=== PATIENT | male | born 2000 | race Caucasian/White ===

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

== ENCOUNTER 2018-09-04 15:00 | Emergency (ER) | END 2018-09-04 21:32 | disposition home or self-care (01) ==

== ENCOUNTER 2019-01-18 10:38 | Emergency (ER) | payer OTHER ==
[~2019-01-18] VITALS: Ht 175.3 cm; Wt 94.6 kg
[~2019-01-18 10:38] MED LIST changes: -ALBU8.5H3 INH; +ALBU8.5H8 INH; +IBUP-1542 PO
[2019-01-18 10:39] VITALS: Ht 175.3 cm; Wt 94.6 kg
[2019-01-18] MEDS ORDERED: LORAZEPAM 0.5 MG TAB PO ONE (11:00)
--- NOTE | 2019-01-18 13:14 | ERD ---
ER Documentation Chief Complaint Chief Complaint " I HAVE THOUGHTS OF HURTING MYSELF, I NEED HELP" HPI 18-year-old man presenting with increasing auditory hallucinations and having thoughts of killing himself. He states the voices telling him to killing himself for the last few weeks and they are getting "louder". Patient denies history of psychiatric illness, psychiatric holds, or psychiatric medications. He states he has been self-medicating himself with marijuana. Patient denies chest pain or shortness of breath, no headache or blurry vision, no fevers or chills, no recent trauma. ROS All systems reviewed and are negative except as per history of present illness. Medications Home Meds Discontinued Reported Medications [None] No Conflict Check 11/11/10 Discontinued Scripts Ibuprofen* (Ibuprofen*) 600 Mg Tablet, 600 MG PO Q8 for pericarditis, #30 TAB Prov:ORIN LOMAX DO 09/04/18 Albuterol Sulfate* (Proair HFA*) 8.5 Gm Hfa.aer.ad, 2 PUFF INH Q4, #1 INHALER Prov:MARTY STEVENSON PA-C 10/05/17 Allergies Allergies: Coded Allergies: No Known Drug Allergies (Verified Allergy, Mild, 01/18/19) PMhx/Soc None History of Surgery: No Anesthesia Reaction: No Hx Neurological Disorder: No Hx Respiratory Disorders: No Hx Cardiac Disorders: No Hx Psychiatric Problems: No Hx Miscellaneous Medical Probl: No Hx Alcohol Use: No Hx Substance Use: Yes (marijuana) Hx Tobacco Use: No Smoking Status: Never smoker FmHx Family History: No diabetes Physical Exam Vitals Vital Signs Date Temp Pulse Resp B/P (MAP) Pulse Ox O2 O2 Flow FiO2 Time Delivery Rate 01/18/19 98.0 73 19 149/93 98 10:39 (111) Physical Exam GENERAL: Well-developed, well-nourished, well-hydrated, anxious, agitated HEENT: Moist mucous membranes, pink conjunctiva, no cervical spine tenderness or step-off deformities, no goiter, no jaundice or icterus, extraocular movements intact without pain. No submandibular induration, and no pharyngeal erythema NEURO: Alert and oriented 3, cranial nerves II through XII intact bilaterally, pupils equal round reactive to light, no focal deficits or facial asymmetry, sensation intact distally Strength 5/5 in upper and lower extremities bilaterally CARDIAC: Regular rate and rhythm, no murmurs rubs or gallops LUNGS: Clear bilaterally no wheezing crackles or stridor PSYCH: Anxious, agitated Result Diagram: 01/18/19 1113 01/18/19 1113 Results 24 hrs Laboratory Tests Test 01/18/19 11:13 01/18/19 12:17 White Blood Count 11.4 10^3/ul Red Blood Count 5.17 10^6/ul Hemoglobin 16.2 g/dl Hematocrit 48.5 % Mean Corpuscular Volume 93.8 fl Mean Corpuscular Hemoglobin 31.3 pg Mean Corpuscular Hemoglobin Concent 33.4 g/dl Red Cell Distribution Width 12.2 % Platelet Count 309 10^3/UL Mean Platelet Volume 8.9 fl Immature Granulocytes % 0.400 % Neutrophils % 74.6 % Lymphocytes % 18.6 % Monocytes % 5.7 % Eosinophils % 0.3 % Basophils % 0.4 % Nucleated Red Blood Cells % 0.0 /100WBC Immature Granulocytes # 0.050 10^3/ul Neutrophils # 8.5 10^3/ul Lymphocytes # 2.1 10^3/ul Monocytes # 0.7 10^3/ul Eosinophils # 0.0 10^3/ul Basophils # 0.1 10^3/ul Nucleated Red Blood Cells # 0.0 10^3/ul Sodium Level 142 mmol/L Potassium Level 3.9 mmol/L Chloride Level 104 mmol/L Carbon Dioxide Level 24 mmol/L Anion Gap 14 Blood Urea Nitrogen 12 mg/dl Creatinine 0.65 mg/dl Est Glomerular Filtrat Rate mL/min > 60 mL/min Glucose Level 124 mg/dl Calcium Level 10.3 mg/dl Total Bilirubin 0.5 mg/dl Direct Bilirubin 0.00 mg/dl Indirect Bilirubin 0.5 mg/dl Aspartate Amino Transf (AST/SGOT) 41 IU/L Alanine Aminotransferase (ALT/SGPT) 98 IU/L Alkaline Phosphatase 71 IU/L Total Protein 8.4 g/dl Albumin 5.2 g/dl Globulin 3.20 g/dl Albumin/Globulin Ratio 1.62 Salicylates Level < 1.0 mg/dl Acetaminophen Level < 10.0 ug/ml Ethyl Alcohol Level < 10.0 mg/dl Urine Color YELLOW Urine Clarity CLEAR Urine pH 5.0 Urine Specific [place] 1.026 Urine Ketones NEGATIVE mg/dL Urine Nitrite NEGATIVE mg/dL Urine Bilirubin NEGATIVE mg/dL Urine Urobilinogen NEGATIVE mg/dL Urine Leukocyte Esterase NEGATIVE [place]/ul Urine Hemoglobin NEGATIVE mg/dL Urine Glucose NEGATIVE mg/dL Urine Total Protein NEGATIVE mg/dl Urine Opiates Screen Negative Urine Barbiturates Negative Urine Amphetamines Screen Negative Urine Benzodiazepines Screen Negative Urine Cocaine Screen Positive Urine Cannabinoids Positive Current Medications Medications Dose Sig/Amna Start Time Status Last (Trade) Ordered Route PRN Stop Time Admin Dose Reason Admin Lorazepam 0.5 mg ONCE ONCE 01/18/19 DC 01/18/19 (Ativan) PO 11:00 11:18 01/18/19 11:01 Procedures/MDM CBC and electrolytes are normal, liver function tests were normal, aspirin Tylenol's, ethanol levels negative. Drug screen was positive for cocaine and marijuana. I administered lorazepam 0.5 mg p.o. x1 for his symptoms. Tele-psychiatry and PET evaluations have been ordered. Patient will require psychiatric hold and transfer to [facility] facility. Patient's behavioral symptoms have stabilized while in the department. Patient is medically cleared and appropriate for psychiatric evaluation and work up. No e/o neurologic, toxic, infectious, or metabolic cause. Departure Diagnosis: Primary Impression: Suicidal ideation Additional Impression: Cocaine abuse Condition: Stable LUCY FRANCO MD Jan 18, 2019 13:14
--- NOTE | 2019-01-18 15:32 | PSY ---
Date/Time of Note Date/Time of Note DATE: 01/18/19 TIME: 15:26 Psychiatric Subjective Eval Consent Pt consented to telemedicine: Yes Subjective Evaluation Patient location: emergency Chief Complaint: " I HAVE THOUGHTS OF HURTING MYSELF, I NEED HELP" History of present illness 18 yo single unemployed male presents to ED c/o depressed mood, suicidal thou ghts w/o a plan and command hallucinations. Pt denies plan or intent but says the thoughts are there all the time and he doesn't know what he can do; he admits to feeling hopeless and helpless, not safe. However, then suggested inpt psych treatment he changes his story and says he feels safe and he is here "just to talk to someone". He is not on any meds. He reluctantly admits to using cocaine. "2x month" ; he says he has been feeling suicidal for a few months. He denies VH, HI. His GF Jamilah Macdonald is with him in the room. 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 Psychiatric Objective Eval Review of Systems: Review of Systems: Not Applicable Physical Examination: Physical Examination: Not Applicable Appetite: Decreased Energy: Decreased Interest: Decreased Mental Status Examination: Appearance: Groomed Eye Contact: Good Psychomotor Activity: Agitated Behavior: Guarded Speech: Clear AFFECT: Depressed, Anxious Mood: Depressed Though Process: Linear Thought Content: Hallucinations Suicidal: Yes Homicidal: No On 72 hour hold: No Orientation: x4 Cognition: Alert Insight: Impared Judgement: Impared Laboratory Results Laboratory Tests Test 01/18/19 11:13 01/18/19 12:17 White Blood Count 11.4 10^3/ul Red Blood Count 5.17 10^6/ul Hemoglobin 16.2 g/dl Hematocrit 48.5 % Mean Corpuscular Volume 93.8 fl Mean Corpuscular Hemoglobin 31.3 pg Mean Corpuscular Hemoglobin Concent 33.4 g/dl Red Cell Distribution Width 12.2 % Platelet Count 309 10^3/UL Mean Platelet Volume 8.9 fl Immature Granulocytes % 0.400 % Neutrophils % 74.6 % Lymphocytes % 18.6 % Monocytes % 5.7 % Eosinophils % 0.3 % Basophils % 0.4 % Nucleated Red Blood Cells % 0.0 /100WBC Immature Granulocytes # 0.050 10^3/ul Neutrophils # 8.5 10^3/ul Lymphocytes # 2.1 10^3/ul Monocytes # 0.7 10^3/ul Eosinophils # 0.0 10^3/ul Basophils # 0.1 10^3/ul Nucleated Red Blood Cells # 0.0 10^3/ul Sodium Level 142 mmol/L Potassium Level 3.9 mmol/L Chloride Level 104 mmol/L Carbon Dioxide Level 24 mmol/L Anion Gap 14 Blood Urea Nitrogen 12 mg/dl Creatinine 0.65 mg/dl Est Glomerular Filtrat Rate mL/min > 60 mL/min Glucose Level 124 mg/dl Calcium Level 10.3 mg/dl Total Bilirubin 0.5 mg/dl Direct Bilirubin 0.00 mg/dl Indirect Bilirubin 0.5 mg/dl Aspartate Amino Transf (AST/SGOT) 41 IU/L Alanine Aminotransferase (ALT/SGPT) 98 IU/L Alkaline Phosphatase 71 IU/L Total Protein 8.4 g/dl Albumin 5.2 g/dl Globulin 3.20 g/dl Albumin/Globulin Ratio 1.62 Salicylates Level < 1.0 mg/dl Acetaminophen Level < 10.0 ug/ml Ethyl Alcohol Level < 10.0 mg/dl Urine Color YELLOW Urine Clarity CLEAR Urine pH 5.0 Urine Specific [place] 1.026 Urine Ketones NEGATIVE mg/dL Urine Nitrite NEGATIVE mg/dL Urine Bilirubin NEGATIVE mg/dL Urine Urobilinogen NEGATIVE mg/dL Urine Leukocyte Esterase NEGATIVE [facility]/ul Urine Hemoglobin NEGATIVE mg/dL Urine Glucose NEGATIVE mg/dL Urine Total Protein NEGATIVE mg/dl Urine Opiates Screen Negative Urine Barbiturates Negative Urine Amphetamines Screen Negative Urine Benzodiazepines Screen Negative Urine Cocaine Screen Positive Urine Cannabinoids Positive Assessment and Plan Assessment/Diagnosis Diagnosis Major depressive disorder recurrent severe with psychosis. Cocaine use disorder Recommendation/Plan Medication Management Zyprexa 5 mg Po qhs; for agitation: Zyrpexa 10 mg + ativan 2 mg + Benadryl 50 mg po oor im prn q 12 hrs Multiple antipsychotics: Yes Discharge Disposition: Psychiatric inpatient Legal Status: Place involuntary hold KIMBER SANTOS MD Jan 18, 2019 15:32
[2019-01-18] MEDS ORDERED: OLANZAPINE (ODT) 5 MG TAB ODT SCH (21:00)
[2019-01-19 06:25] VITALS: BP 121/79; PULSE 82; RESP 20
--- NOTE | 2019-01-19 06:41 | EN ---
Date/Time of Note Date/Time of Note DATE: 01/19/19 TIME: 06:40 ER Progress Note Psychiatric Observation Note: Indication: Suicidal ideation Duration: Greater than 20 hours Family history: As documented in original HPI The patient was observed with serial exams over the above timeframe. The patient continued to be well-appearing, and observation continued without complication. All other needs have been met during emergency department stay. Routine psychiatric medications ordered: Yes, see EMR Zyprexa 5 nightly Hold status: Currently on 5150 hold Placement status: Patient seems to be accepted at [facility] and transportation at 1030 this morning. Pending transportation at this time. GISEL QUIROZ MD Jan 19, 2019 06:41
== END 2019-01-19 11:25 ==
LOC: E/R 10:38
DX: R45.851 Suicidal ideations (principal); F14.10 Cocaine abuse, uncomplicated
CPT/HCPCS: 36415; 80053; 80307; 81003; 85025; Z7502; Z7610